=== PATIENT | female | born 1970 | race African-American/Black ===

== ENCOUNTER 2018-10-04 06:30 | Observation (INO) | payer OTHER, MEDICAID ==
[~2018-10-04] VITALS: Ht 160 cm; Wt 74.4 kg
--- NOTE | ~2018-10-04 | OP ---
[address] [address] OPERATIVE REPORT Name: LORAINE MCKENNA Room: [address] IN M.R.#: [id number] Admission: 10/04/18 Attend Phys: Andre Smith MD Discharge: Date of : 72 Report #: [id number] THIS REPORT FOR: //name// CC: [facility] physician/PCP Andre Smith PREOPERATIVE DIAGNOSIS: Bimalleolar fracture dislocation of the left ankle. OPERATIVE PROCEDURE PERFORMED: Open reduction and internal fixation of bimalleolar fracture dislocation of the left ankle. DESCRIPTION OF PROCEDURE: Under general endotracheal anesthesia, the patient was placed onto the Jesus table. Routine prep and drape was performed of the left leg and foot. The procedure was performed under tourniquet ischemia. Bleeding was controlled by electrocautery. The wound was irrigated every 20 minutes with bacitracin solution. Following the appropriate timeout procedure, a 4-inch skin incision was made over the distal fibula. The incision was carried through the skin, subcutaneous tissue and fascia. Fracture of the lateral malleolus was apparent. The fracture was reduced into an anatomic position. Two smooth K-wires passed across the fracture site, securing the fracture temporarily in an anatomic position. A compression plate with its component screws were then applied and seated. This secured the fracture in an anatomic position. The smooth K wires were removed. Pre and postoperative x-rays were obtained. The wound was copiously irrigated. The wound was closed in layers with 0 Vicryl for the fascial layers. Subcutaneous tissue was closed with 2-0 Vicryl. The skin was closed with skin gera. Sterile dressing was applied. The patient tolerated the procedure well and was returned to the recovery area in good condition. By: [id number] Juárez MD /reza
--- NOTE | ~2018-10-04 | CON ---
[address] [address] CONSULTATION Name: LORAINE MCKENNA Room: [address] IN M.R.#: [id number] Admission: 10/04/18 Attend Phys: Andre Smith MD Discharge: Date of : 72 Report #: [id number] THIS REPORT FOR: //name// CC: [facility] physician/PCP Andre Smith This 48-year-old female slipped and fell on some icy grass, landing on her right lower extremity. She felt a pop about her right ankle and experienced excruciating pain. She was brought to the Emergency Room where she was noted to have a bimalleolar fracture dislocation of her left ankle. She was advised to become hospitalized for operative care of her injury. The risks and benefits of surgery along with possible complications were discussed with her. She will be followed following her surgery until the fracture has healed. Thank you very much for the opportunity of seeing the patient. By: [id number] Ruy Juárez MD /reza
[2018-10-04 06:42] VITALS: BP 102/52
[2018-10-04 09:04] LABS: HEMATOCRIT 34.6 % (37.0-47.0); HEMOGLOBIN 11.4 gm/dL (12.0-15.0); MCH 29.8 pg (26.0-34.0); MCV 90.3 fL (80.0-100.0); MPV 7.5 fl. (7.2-11.1); NUCLEATED RBCS 0 /100WBC; PLATELET COUNT* 408 thou/uL (150-400); RBC 3.84 mil/uL (4.20-5.00); RDW-CV 17.3 % (10.5-14.5)
[2018-10-04 09:14] LABS: ANION GAP 5 mmol/L (7-16); BUN 11 mg/dL (7-18); CALCIUM 9.2 mg/dL (8.5-10.1); CHLORIDE 104 mmol/L (98-107); CO2 29 mmol/L (21-32); CREATININE 0.7 mg/dL (0.6-1.3); GLUCOSE 93 mg/dL (70-99); POTASSIUM 3.9 mmol/L (3.5-5.1); SODIUM 138 mmol/L (136-145)
[2018-10-04 09:22] LABS: ALBUMIN 3.2 g/dL (3.4-5.0); ALKALINE PHOSPHATASE 94 U/L (46-116); SGOT 19 U/L (15-37); SGPT 25 U/L (30-65); TOTAL BILIRUBIN 0.5 mg/dL (<0.1-1.0); TOTAL PROTEIN 7.9 g/dL (6.4-8.2); TROPONIN-I LEVEL <0.06 ng/mL (<0.06)
[2018-10-04 09:35] VITALS: BP 119/34
[2018-10-04 10:00] VITALS: BP 118/83
--- NOTE | 2018-10-04 10:00 | NUR ---
PATIENT ADMITTED TO ROOM 318 VIA CART FROM ER. PATIENT ASSISTED TO BED FROM CART. SPLINT IN PLACE TO LEFT LEG. ICE PROVIDED AND ELEVATED ON PILLOW PER PATIENT REQUEST. SALINE LOCK PATENT. ADMISSION HISTORY AND ASSESSMENT COMPLETED. VITALS STABLE. NPO. ORIENTED TO ROOM AND ENVIRONMENT. FALL PRECAUTIONS IN PLACE. CALL LIGHT WITHIN REACH. WILL CONTINUE WITH PLAN OF CARE.
[2018-10-04 10:08] LABS: ABSOLUTE LYMPHOCYTES 1.4 thou/uL (0.8-5.3); ABSOLUTE MONOCYTES 0.3 thou/uL (0.0-1.2); ABSOLUTE NEUTROPHILS 6.2 thou/uL (1.6-8.1)
[2018-10-04 10:11] LABS: PLATELET ESTIMATE ADEQUATE
[2018-10-04 10:12] LABS: MACROCYTES 2+
[2018-10-04 10:13] LABS: TARGET CELLS 1+
[2018-10-04 11:52] VITALS: BP 118/83
[2018-10-04 15:44] VITALS: BP 116/94
--- NOTE | 2018-10-04 16:05 | NUR ---
PATIENT RETURNED FROM PACU AT THIS TIME. PATIENT STATING PAIN IS 8/10 TO LEFT ANKLE. DRESSING INTACT TO LEFT FOOT, ICE PACK IN PLACE. NEURO CHECK WNL TO LEFT FOOT, + PULSES, ABLE TO WIGGLE TOES, AND CAP REFILL < 3 SEC. TOLERATING ICE CHIPS. FAMILY AT BEDSIDE. CALL LIGHT WITHIN REACH. WILL CONTINUE WITH PLAN OF CARE.
--- NOTE | 2018-10-04 19:47 | NUR ---
PATIENT HAS BEEN A/O X 4 SINCE RETURNING FROM PACU. GIVEN PRN MORPHINE X 1 THIS AFTERNOON WITH PARTIAL RELIEF. PATIENT'S SALINE LOCK PATENT. DRESSING TO LEFT FOOT C/D/I, NEURO CHECKS WNL TO LEFT FOOT. ABLE TO WIGGLE TOES, CAP REFILL < 3 SEC, AND SENSATION INTACT. PATIENT ASSISTE WITH REPOSITIONING THIS AFTERNOON. VITALS STABLE ON RA. FAMILY AT BEDSIDE. PHYSICAL THERAPY ORDERED, TO BE NWB TO LEFT FOOT. FALL PRECAUTIONS IN PLACE. HOURLY ROUNDING COMPLETED. CALL LIGHT WITHIN REACH. WILL CONTINUE WITH PLAN OF CARE.
[2018-10-04 20:15] VITALS: BP 121/68
[2018-10-05] VITALS (7 sets, daily range): BP systolic 100–114; BP diastolic 42–56
--- NOTE | 2018-10-05 06:24 | NUR ---
PT SLEPT MOST OF SHIFT. ASSESSMENT DOCUMENTED. MEDS GIVEN PER E-MAR. IV PATENT. PAIN MEDS GIVEN PER E-MAR WITH RELIEF. ABX INFUSED. DRESSING REMAINED C/D/I, ICE APPLIED THROUGH SHIFT. PT VOIDING ADEQUATLY. PT STATES NO CONERNS AT THIS TIME. WILL CONTINUE WITH PLAN OF CARE.
[2018-10-05] MEDS ORDERED: COLACE100 MG PO (09:41)
[2018-10-05] MEDS ORDERED: PERCOCET 7.5-31 EACH PO (09:41)
--- NOTE | 2018-10-05 13:47 | EKG ---
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
--- NOTE | 2018-10-05 15:00 | NUR ---
SPOKE WITH PT. SHE HAD FINISHED THERAPY AND P.T. RECOMMENDED PT.TO STAY ONE MORE NIGHT FOR SAFETY. PT.HAS A FULL FLIGHT OF STAIRS TO GET IN HOTEL WHERE SHE IS STAYING. DISCUSSED WITH . HE OK'D THIS. PT.INFORMED AND WAS GRATEFUL. SHE SAID SHE IS LIVING AT [facility] IN [place] WITH HER FIANCE. SHE HAD BEEN HOMELESS. SHE GOT A JOB HERE AT [facility] IN THE [place] BUT FELL WALKING TO WORK AND FX HER ANKLE. SHE WILL NEED A WALKER. SHE HAS CRUTCHES BUT WAS NOT SAFE ON THEM. HER FIANCE GOT CALLED TO WORK THIS EVENING AND WILL BE HOME TOMORROW. SHE THINKS HER NIECE CAN STAY WITH HER WHILE HER FIANCE IS AT WORK. GAVE AND DISCUSSED COMMUNITY RESOURCE INFORMATION. ALSO GAVE HER THE HOUSING AUTHORITY PHONE NUMBER. CM WILL ORDER WALKER FOR HER TOMORORW.
--- NOTE | 2018-10-05 17:36 | NUR ---
ASSESSMENT COMPLETE. PT ALERT AND ORIENTED X4. PT GIVEN PRN PAIN MEDICATION NEEDED. PHYSICAL THERAPY ABLE TO WORK WITH PT TODAY. SHE SHOULD BE ABLE TO DC TOMORROW. PT IS ON ROOM AIR, VSS. DENIES N/V. TOLERATING DIET. VOIDING WITHOUT DIFFICULTY. PT IS NON WT BEARING TO LEFT FOOT. PT USES BEDPAN NEEDED. SEE ASSESSMENT AND VITALS FOR OTHER DETAILS. CALL LIGHT WITHIN REACH, WILL CONTINUE PLAN OF CARE
--- NOTE | 2018-10-06 05:18 | NUR ---
PT SLEPT FAIRLY WELL SHE STATES. UP WITH ASSIST AND WALKER TO BATHROOM TO VOID, NWB TO LLE. LELIA WRAP BANDAGE CDI TO LLE. RECEIVING PO PAIN MED X2 WITH GOOD RESULT FOR LLE PAIN. LAC SL. VSS. ABLE TO USE CALL LITE AND MAKE NEEDS KNOWN. BED ALARM ON FOR SAFETY. HOPEFUL FOR DISCHARGE HOME TODAY.
[2018-10-06 08:00] VITALS: BP 106/49
--- NOTE | 2018-10-06 13:15 | NUR ---
CHASSIS WIRER INFORMED THAT THE PATIENT DIEUDONNE NEED A WALKER AT D/C. D/C BURNER TENDER SPOKE TO TANK WITH PROVIDER [employer] TO CHECK PATIENT'S DME BENEFITS FOR A WALKER. TANK RETURNED CALL AND INFORMS THAT [employer] IS UNABLE TO PROVIDE A WALKER FOR THE PATIENT BECAUSE THEY ARE NOT IN-NETWORK WITH THE PATIENTS [place] [employer]. D/C BURNER TENDER SPOKE TO JOSUE CONDON TO INFORM OF THE DME REFERRAL FOR A WALKER AND FAXED THE PATIENT'S FACESHEET, H&P, AND WALKER ORDER. JOSUE CONDON RETURNED CALL AND INFORMED THAT THE WALKER WOULD BE DELIVERED BY 1300. D/C BURNER TENDER INFORMED RN IN-CHARGE OF THE PATIENT OF THIS INFO. RN IN AGREEMENT. D/C BURNER TENDER ALSO INFORMED RN THAT THE PATIENT DIEUDONNE NEED TO WAIT FOR FAMILY TO ARRIVE HERE AT THE HOSPITAL BEFORE GOING HOME SHE WILL NOT BE ABLE TO GET HERSELF AND HER BELONGINGS UP THE STAIRS WITHOUT ASSISTANCE. RN IN AGREEMENT. CM WILL REMAIN AVAILABLE TO ASSIST AND FOLLOW NEEDED.
--- NOTE | 2018-10-06 14:20 | NUR ---
CONFERENCE RESERVATIONIST INFORMED OF THE NEED TO SEND DME REFERRAL FOR A WALKER FOR THE PATIENT AT D/C. D/C ELECTRON BEAM WELDING MACHINE OPERATOR SPOKE TO TANK WITH [employer] AND SHE INFORMS THAT '[employer] IS NOT IN-NETWORK WITH THE PATIENT'S INSURANCE'. D/C ELECTRON BEAM WELDING MACHINE OPERATOR SPOKE TO KHADRA GUERRA TO DISCUSS ABILITY TO PROVIDE THE PATIENT A WALKER AT D/C, AND THEY RETURNED CALL TO INFORM THAT THE WALKER WOULD BE DELIVERED TO THE PATIENT'S ROOM AT 1300. D/C ELECTRON BEAM WELDING MACHINE OPERATOR INFORMED THE RN OF THIS INFO. D/C ELECTRON BEAM WELDING MACHINE OPERATOR ALSO INFORMED THE RN THAT THE PATIENT WOULD NEED TO WAIT FOR HER FAMILY TO ARRIVE AT THE HOSPITAL TO ASSIST WITH TRANSPORT HOME. THE PATIENT WOULD NOT BE ABLE TO GET HERSELF, WALKER, AND BELONGINGS UP THE STAIRS SAFELY. RN IN AGREEMENT. CM WILL REMAIN AVAILABLE TO ASSIST AND FOLLOW NEEDED.
--- NOTE | 2018-10-06 17:32 | NUR ---
PATIENT DISCHARGED TO HOME AT THIS TIME. DRESSING TO LEFT ANKLE MAINTAINED. IV DC'D PRIOR TO DISCHARGE. PERCOCET PRN GIVEN X 2 THIS SHIFT WITH GOOD RELIEF NOTED. PATIENT TAKEN OUT WITH ALL BELONGINGS VIA WHEELCHAIR, WALKER PROVIDED TO PATIENT.
== END 2018-10-06 17:37 | disposition home or self-care (01) ==
LOC: M.ERS 06:30 → M.3W 08:54 → M.TBA-ER 08:54 → M.3W 10:00
PROVIDERS: Emergency Medicine Emergency Medical Services; ADMIT Internal Medicine
DX: S82.842A Displaced bimalleolar fracture of left lower leg, initial encounter for closed fracture (principal); W18.30XA Fall on same level, unspecified, initial encounter; Y93.89 Activity, other specified; Y92.89 Other specified places as the place of occurrence of the external cause; Y99.8 Other external cause status; Z72.89 Other problems related to lifestyle; Z98.51 Tubal ligation status

== ENCOUNTER → 2018-12-02 | Outpatient (CLI) | payer OTHER, MEDICAID ==
[~2018-12-02] MED LIST: COLACE100 MG PO; PERCOCET 7.5-31 EACH PO
== END ==
LOC: M.RAD 16:25
DX: S82.892A Other fracture of left lower leg, initial encounter for closed fracture (principal); X58.XXXA Exposure to other specified factors, initial encounter; Y93.89 Activity, other specified; Y92.89 Other specified places as the place of occurrence of the external cause; Y99.8 Other external cause status

== ENCOUNTER → 2019-03-24 | Outpatient (CLI) | payer OTHER | LOC: M.RAD 16:58 | DX: M25.572 Pain in left ankle and joints of left foot (principal); Z96.7 Presence of other bone and tendon implants ==

== ENCOUNTER 2019-06-06 18:58 | Emergency (ER) | payer OTHER ==
[~2019-06-06] VITALS: Ht 160 cm; Wt 70.3 kg
[2019-06-06 19:26] LABS: URINE BILIRUBIN NEGATIVE (Negative); URINE BLOOD 2+ (Negative); URINE CLARITY CLEAR; URINE COLOR YELLOW; URINE GLUCOSE-RANDOM NEGATIVE (Negative); URINE KETONES TRACE (Negative); URINE NITRITE-REFLEX NEGATIVE (Negative); URINE PROTEIN NEGATIVE (Negative); URINE SPECIFIC GRAVITY >= 1.030 (1.005-1.030); URINE UROBILINOGEN 0.2 E.U./dl (0.2-1.0)
[2019-06-06 19:38] LABS: URINE LEUKOCYTES-REFLEX 2+ (Negative)
[2019-06-06 19:41] LABS: SQUAMOUS >10 Many /LPF (0-3)
[2019-06-06 19:42] LABS: BACTERIA-REFLEX 1-9 Few /HPF (None Seen); URINE RBC 0-2 Rare /HPF (0-2)
[2019-06-06 19:43] LABS: CASTS None Seen /LPF (None Seen); CRYSTALS None Seen /LPF (None Seen); MUCUS None Seen strn/LPF (None Seen); URINE WBC-REFLEX 0-5 Rare /HPF (0-5)
[2019-06-06] MEDS ORDERED: ACETAMINOPHEN-1 EAC1 PO (19:51)
[2019-06-06] MEDS ORDERED: FLAGYL500 M1 PO (19:51)
[2019-06-06 20:12] VITALS: BP 132/78
== END 2019-06-06 20:12 | disposition home or self-care (01) ==
LOC: M.ERS 18:58
PROVIDERS: Personal Emergency Response Attendant
DX: N39.0 Urinary tract infection, site not specified (principal); A59.9 Trichomoniasis, unspecified